=== PATIENT | female | born 1970 | race Caucasian/White ===

== ENCOUNTER 2018-07-10 14:29 | Emergency (ER) | payer BC ==
--- NOTE | 2018-07-10 22:32 | ER ---
SUBJECTIVE: The patient is a 47-year-old female with previous urinary tract infection, she thinks she is having another one. She has dysuria, hematuria, frequency, hesitation, and is feeling very uncomfortable. She states she had another one on about 3 weeks ago. She was placed on Bactrim, she states she treated this UTI by talking online to a doctor who then called her in Bactrim. She was never examined and the urine was never cultured. She feels it worked partially, but never fully eradicated it and now she is having worsening symptoms again. She does have chills. No fevers. No bowel changes. No melena or hematochezia. Denies . Denies assault or trauma. Some mild vague low back pain. No chest pain or shortness of breath. PAST MEDICAL HISTORY: Urinary tract infections. She states she is otherwise normally healthy. CURRENT MEDICATIONS: Denied. ALLERGIES: Clarithromycin and erythromycin, both cause heart palpitations. SOCIAL HISTORY: She is here with her . She has no substance abuse. REVIEW OF SYSTEMS: Chills. No headache. No chest pain. No shortness of breath. Some mild bladder discomfort, some vague lower back pain, mostly dysuria. Please see HPI. OBJECTIVE: HEENT: Normocephalic and atraumatic. General: Healthy appearing, ambulatory, good historian. Vital Signs: Stable. She is afebrile. No jaundice. Chest: No respiratory distress. Back: Mostly subjective tenderness, nothing really on exam. No specific CVAT. Abdomen: Soft, benign. Also, some subjective bladder tenderness. LABORATORY DATA: Urinalysis, yellow clear, positive for occult blood, nitrites and bacteria, small amount of leukocyte esterase as well, it was sent for culture. ASSESSMENT: Urinary tract infection. PLAN: Prescription for Macrobid and Pyridium. Aggressive fluids, probiotic yogurt. Follow up with PCP as needed. Advised that the culture will be back in about 2 days and if she is not getting better, she may need another antibiotic. [facility] /[id number]
== END 2018-07-10 15:36 | disposition home or self-care (01) ==
LOC: DL.ED 14:29
DX: N39.0 Urinary tract infection, site not specified (principal)
CPT/HCPCS: 81001; 87086; 99283